=== PATIENT | male | born 1995 | race Caucasian/White ===

== ENCOUNTER 2017-02-21 11:13 | Emergency (ER) | payer SELFPAY ==
[~2017-02-21] VITALS: Ht 175.3 cm; Wt 99.8 kg
--- NOTE | 2017-02-21 12:20 | ED Psychosocial ---
General Chief Complaint: Psych/Social Disorder Stated Complaint: SUICIDAL IDEATIONS,AMS Nursing Triage Note: patient presents with c/o Suicidal ideation and altered mental status. Source: patient Exam Limitations: clinical condition History of Present Illness Time seen by provider: 12:00 Initial Comments 21-year-old male patient presents to the emergency department with initial complaints of suicidal ideation and altered mental status. Patient history is difficult to obtain as patient is not making sense. 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 Nonsensical sentences. Patient states he was "cutting his arms up slow", but not trying to harm himself and did not cut up his pinky because "I have manners." Reports checking himself into an emergency hospital 2 wks ago but "he used his wrists" and didn't stay. States "he is from [place], [place] but resides in [place], [place] and right now he lives in [place], but the [employer] is slow about those things." States he works for a [employer]. Patient denies suicidal or homicidal ideation. Severity: moderate Associated Symptoms: impaired concentration, insomnia Allergies and Home Medications Allergies Coded Allergies: No Known Drug Allergies (Unverified , 02/21/17) Home Medications Buspirone HCl 10 Mg Tablet, 10 MG PO, (Reported) ROS-Unable to Obtain: Unable to obtain complete ROS due to clinical condition Constitutional: No dizziness, No fever Respiratory: cough ("I cough because I smoke, but I do it up fast!"), No phlegm , No short of breath Cardiovascular: No chest pain Psychiatric/Neurological: See HPI Past Xyvivyu-Yjuqse-Xbdfct Hx Patient Social History Recreational Drug Use: Yes (marijuana) Smoking Status: Current Everyday Smoker (1 ppd) Type Used: Cigarettes Recent Foreign Travel: No Contact w/Someone Who Travel: No Physical Exam Vital Signs Vital Sign - Last 12Hours 02/21/17 12:00 Temp 98.2 Pulse 85 Resp 16 B/P (MAP) 147/75 (99) Pulse Ox 98 Capillary Refill : General Appearance: WD/WN, no apparent distress HEENT: PERRL/EOMI, pharynx normal Neck: supple, normal inspection Respiratory: lungs clear, normal breath sounds, no respiratory distress, no accessory muscle use Cardiovascular: normal peripheral pulses, regular rate, rhythm, no edema, no murmur Gastrointestinal: normal bowel sounds, non tender, soft, no organomegaly Extremities: normal range of motion, non-tender, no pedal edema, normal capillary refill, other (scattered abrasions of the bilateral forearms without bleeding or scabs.) Neurologic/Psychiatric: medical coder II-XII nml as tested, no motor/sensory deficits, alert, oriented x 3 (patient oriented to person, place, time, and situation), depressed affect (flat affect) Appearance/Memory: no memory impairment, denies illness, disheveled, impaired insight Behavior/Eye Contact: avoids eye contact, refused to answer (refused to answer the majority of the ROS.), compulsive, uncooperative (at times is uncooperative) Thoughts/Hallucinations: flight of ideas, obsessive, persecution, other ( nonsensical sentences the majority of the time. Occasionally partial sentences are understandable.) Skin: normal color, warm/dry, other (scattered abrasions of the bilateral forearms without bleeding or scabs.) Progress/Results/Core Measures Results/Orders Lab Results Laboratory Tests Test 02/21/17 12:26 02/21/17 12:31 Range/Units White Blood Count 6.3 4.3-11.0 10^3/uL Red Blood Count 4.80 4.35-5.85 10^6/uL Hemoglobin 15.2 13.3-17.7 G/DL Hematocrit 43 40-54 % Mean Corpuscular Volume 89 80-99 FL Mean Corpuscular Hemoglobin 32 25-34 PG Mean Corpuscular Hemoglobin Concent 35 32-36 G/DL Red Cell Distribution Width 11.6 10.0-14.5 % Platelet Count 214 130-400 10^3/uL Mean Platelet Volume 9.7 7.4-10.4 FL Neutrophils (%) (Auto) 51 42-75 % Lymphocytes (%) (Auto) 33 12-44 % Monocytes (%) (Auto) 10 0-12 % Eosinophils (%) (Auto) 5 0-10 % Basophils (%) (Auto) 1 0-10 % Neutrophils # (Auto) 3.2 1.8-7.8 X 10^3 Lymphocytes # (Auto) 2.1 1.0-4.0 X 10^3 Monocytes # (Auto) 0.6 0.0-1.0 X 10^3 Eosinophils # (Auto) 0.3 0.0-0.3 10^3/uL Basophils # (Auto) 0.0 0.0-0.1 10^3/uL Sodium Level 139 135-145 MMOL/L Potassium Level 3.7 3.6-5.0 MMOL/L Chloride Level 105 98-107 MMOL/L Carbon Dioxide Level 27 21-32 MMOL/L Anion Gap 7 5-14 MMOL/L Blood Urea Nitrogen 13 7-18 MG/DL Creatinine 0.90 0.60-1.30 MG/DL Estimat Glomerular Filtration Rate > 60 BUN/Creatinine Ratio 14 Glucose Level 87 70-105 MG/DL Calcium Level 9.1 8.5-10.1 MG/DL Total Bilirubin 1.1 H 0.1-1.0 MG/DL Aspartate Amino Transf (AST/SGOT) 37 H 5-34 U/L Alanine Aminotransferase (ALT/SGPT) 50 0-55 U/L Alkaline Phosphatase 51 40-136 U/L Total Protein 7.0 6.4-8.2 GM/DL Albumin 4.2 3.2-4.5 GM/DL TSH [place] Testing 1.12 0.35-4.94 UIU/ML Salicylates Level < 5.0 L 5.0-20.0 MG/DL Acetaminophen Level < 10 L 10-30 UG/ML Serum Alcohol < 10 <10 MG/DL Urine Color YELLOW Urine Clarity CLEAR Urine pH 8 5-9 Urine Specific [place] 1.010 L 1.016-1.022 Urine Protein NEGATIVE NEGATIVE Urine Glucose (UA) NEGATIVE NEGATIVE Urine Ketones NEGATIVE NEGATIVE Urine Nitrite NEGATIVE NEGATIVE Urine Bilirubin NEGATIVE NEGATIVE Urine Urobilinogen NORMAL NORMAL MG/DL Urine Leukocyte Esterase NEGATIVE NEGATIVE Urine RBC (Auto) NEGATIVE NEGATIVE Urine RBC NONE /HPF Urine WBC NONE /HPF Urine Squamous Epithelial Cells NONE /HPF Urine Crystals NONE /LPF Urine Bacteria NEGATIVE /HPF Urine Casts NONE /LPF Urine Mucus NEGATIVE /LPF Urine Culture Indicated NO Urine Opiates Screen POSITIVE H NEGATIVE Urine Oxycodone Screen NEGATIVE NEGATIVE Urine Methadone Screen NEGATIVE NEGATIVE Urine Propoxyphene Screen NEGATIVE NEGATIVE Urine Barbiturates Screen NEGATIVE NEGATIVE Ur Tricyclic Antidepressants Screen NEGATIVE NEGATIVE Urine Phencyclidine Screen NEGATIVE NEGATIVE Urine Amphetamines Screen NEGATIVE NEGATIVE Urine Methamphetamines Screen NEGATIVE NEGATIVE Urine Benzodiazepines Screen NEGATIVE NEGATIVE Urine Cocaine Screen NEGATIVE NEGATIVE Urine Cannabinoids Screen POSITIVE H NEGATIVE My Orders Orders - LINDSAY CASTILLO Ua Culture If Indicated (02/21/17 11:31) Cbc With Automated Diff (02/21/17 11:31) Comprehensive Metabolic Panel (02/21/17 11:31) Alcohol (02/21/17 11:31) Drug Screen Stat (Urine) (02/21/17 11:31) Acetaminophen (02/21/17 11:31) Salicylate (02/21/17 11:31) Ekg Tracing (02/21/17 11:31) Thyroid Analyzer (02/21/17 11:31) Disposal Tray (Paper/Plastic) (02/21/17 13:21) Cho 60g/M 3snack (16-2000 Piyush) (02/21/17 Lunch) Ziprasidone Injection (Geodon Injection) (02/21/17 13:28) Nicotine Patch (Nicoderm Patch) (02/21/17 15:30) Medications Given in ED Current Medications Medications Dose Ordered Sig/Ling Route Start Time Stop Time Status Last Admin Dose Admin Olanzapine 5 mg ONCE ONCE PO 02/21/17 13:30 02/21/17 13:31 DC 02/21/17 13:30 5 MG Vital Signs/I&O Vital Sign - Last 12Hours 02/21/17 02/21/17 12:00 18:17 Temp 98.2 Pulse 85 64 Resp 16 20 B/P (MAP) 147/75 (99) Pulse Ox 98 100 ECG Initial ECG Impression Date: Feb 21, 2017 Initial ECG Impression Time: 12:24 Initial ECG Rate: 72 Initial ECG Rhythm: Normal Sinus Initial ECG Impression: Normal Initial ECG Comparisson: No Previous ECG Available Comment NSR without STEMI. ECG reviewed with Dr. Wiggins. Departure Communication (Admissions) Progress Notes Patient seen and evaluated. Baseline labs and ECG obtained. 1335 Patient case discussed with James Bosch. Patient given Zyprexa po for agitated behavior and psychosis. James recommends observing patient to see if the Zyprexa improves symptoms. KTRACS negative for recent medications. 1430 Patient now showing improved word and sentence connections. Patient denies suicidal or homicidal ideation. Reports his boss does not normally work closely with the patient and does not understand the way his brain works. He does state he has a h/o self cutting, but was not trying to commit suicide. Reports the [employer] he works for is leaving [facility] and he will not have a place to stay [facility]. Requests this examiner contact the [facility] in [place], [place]. 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 [facility] ([phone]) contacted at patient's request to see if they have a bed available for the patient. [facility] staff reports they do NOT have any open beds. [phone] Patient's grandfather, Corby Galvan, contacted for a ride home at the request of the patient. Phone number given to this examiner by the patient (). Grandfather reports patient was recently dsch from [facility] inpatient behavioral health service 2 wks ago with a Rx for seroquel. He states the patient's mother is a nurse in [place] and works nights. She sleeps through the day and can not take a call right now. Corby states he can pick the patient up in the morning if we can find housing for him [place]. Patient reports he has been taking his seroquel until the day before yesterday. Did not have any seroquel yesterday or today. 1657 James Bosch contacted. James States they do not have any beds available to house the patient fel[place]. Tatianna Castle with marketing services coordinator states she is able to pay for a hotel room at the [facility] [id number] in [place] for 1 night until the patient's grandfather tomorrow morning. 1800 call excepted from Tatianna Castle with reports of room being set up at the [facility] in [place]. 181 Corby Cole contacted with plan for dsc to the [facility] in [place]. Corby states he will pick the patient up in the morning at the [facility] . Dismissal plan discussed with the patient. Patient verbalizes understanding. Patient continues to deny suicidal or homicidal ideation. Patient case and plan of care discussed with Dr. Turner, he agrees with the plan of care. Impression Impression: Primary Impression: Schizophrenia Qualified Codes: F20.9 - Schizophrenia, unspecified Additional Impression: Noncompliance with medication regimen Disposition: HOME, SELF-CARE Condition: Improved Departure-Patient Inst. Decision time for Depature: 18:05 Referrals: NO,LOCAL PHYSICIAN (PCP/Family) Primary Care Physician Patient Instructions: Bipolar Disorder (DC), Schizophrenia (DC) Add. Discharge Instructions: All discharge instructions reviewed with patient and/or family. Voiced understanding. Continue usual home medications including Seroquel and BuSpar. Go directly to [facility] where they will have a hotel room for you for tonight. Your hotel room has been paid for by social media content specialist at [facility]. Your grandfather will pick you up tomorrow morning at [facility]. Return immediately to the emergency department or contact the crisis line [phone]) if any thoughts of harming yourself or others. Return immediately to the emergency department for worsened symptoms or any other concerns. LINDSAY CASTILLO Feb 21, 2017 12:20
[2017-02-21 12:37] LABS: BASOPHILS % (AUTO) 1 % (0-10); EOSINOPHILS # (AUTO) 0.3 10^3/uL (0.0-0.3); EOSINOPHILS % (AUTO) 5 % (0-10); LYMPHOCYTES # (AUTO) 2.1 X 10^3 (1.0-4.0); LYMPHOCYTES % (AUTO) 33 % (12-44); MEAN CORPUSCULAR HEMOGLOBIN 32 PG (25-34); MEAN CORPUSCULAR HGB CONC 35 G/DL (32-36); MEAN CORPUSCULAR VOLUME 89 FL (80-99); MEAN PLATELET VOLUME 9.7 FL (7.4-10.4); MONOCYTES # (AUTO) 0.6 X 10^3 (0.0-1.0); MONOCYTES % (AUTO) 10 % (0-12); NEUTROPHILS # (AUTO) 3.2 X 10^3 (1.8-7.8); NEUTROPHILS % (AUTO) 51 % (42-75); PLATELET COUNT 214 10^3/uL (130-400); RED CELL DISTRIBUTION WIDTH 11.6 % (10.0-14.5); WHITE BLOOD COUNT 6.3 10^3/uL (4.3-11.0)
[2017-02-21 12:42] LABS: BILIRUBIN,URINE NEGATIVE (NEGATIVE); KETONES,URINE NEGATIVE (NEGATIVE); LEUKOCYTE ESTERASE ,URINE NEGATIVE (NEGATIVE); NITRITE,URINE NEGATIVE (NEGATIVE); PH,URINE 8 (5-9); PROTEIN,URINE NEGATIVE (NEGATIVE); UROBILINOGEN,URINE NORMAL (NORMAL)
[2017-02-21] MEDS ORDERED: BUSP10TA95 PO (12:44)
[2017-02-21 13:00] LABS: ALANINE AMINOTRANSFERASE 50 U/L (0-55); ALBUMIN 4.2 GM/DL (3.2-4.5); ALCOHOL < 10 MG/DL (<10); ANION GAP 7 MMOL/L (5-14); ASPARTATE AMINO TRANSFERASE 37 U/L (5-34); BILIRUBIN,TOTAL 1.1 MG/DL (0.1-1.0); BLOOD UREA NITROGEN 13 MG/DL (7-18); BUN/CREATININE RATIO 14; CALCIUM 9.1 MG/DL (8.5-10.1); CARBON DIOXIDE 27 MMOL/L (21-32); CHLORIDE 105 MMOL/L (98-107); GFR ESTIMATED > 60; GLUCOSE 87 MG/DL (70-105); POTASSIUM 3.7 MMOL/L (3.6-5.0); SALICYLATE < 5.0 MG/DL (5.0-20.0); SODIUM 139 MMOL/L (135-145)
[2017-02-21 13:03] LABS: ACETAMINOPHEN < 10 UG/ML (10-30)
[2017-02-21] MEDS ORDERED: ZIPRASIDONE 20 MG INJ (GEODON) VIAL IM ONE ×2 (13:28→13:30)
[2017-02-21] MEDS ORDERED: OLANZapine 5 MG ODT (ZyPREXA ZYDIS) ONE (13:29)
[2017-02-21] MEDS ORDERED: OLANZapine 5 MG ODT (ZyPREXA ZYDIS) PO ONE (13:30)
[2017-02-21] MEDS ORDERED: NICOTINE 21 MG (NICODERM) PATCH TD ONE (15:30)
[2017-02-21 18:17] VITALS: BP 116/69
== END 2017-02-21 18:17 | disposition home or self-care (01) ==
LOC: ER 11:17
DX: F20.9 Schizophrenia, unspecified (principal); F12.10 Cannabis abuse, uncomplicated; F17.210 Nicotine dependence, cigarettes, uncomplicated; Z91.14 Patient's other noncompliance with medication regimen
CPT/HCPCS: 36415; 80053; 80306; 80320; 80329; 81000; 84443; 85025; 93005